=== PATIENT | female | born 1960 | race Two or more races ===

== ENCOUNTER 2021-03-25 10:22 | Emergency (ER) | payer OTHER ==
[~2021-03-25] VITALS: Ht 152.4 cm; Wt 64.4 kg
[2021-03-25] MEDS ORDERED: ATORVASTATIN CA40 MG PO (10:59)
[2021-03-25] MEDS ORDERED: ABILIFY10 MG PO (11:00)
[2021-03-25] MEDS ORDERED: LAMICTAL100 M1 PO (11:01)
[2021-03-25] MEDS ORDERED: PEPCID AC20 MG PO (11:01)
[2021-03-25] MEDS ORDERED: ACID REDUCER20 M1 PO (11:01)
[2021-03-25] MEDS ORDERED: FOSAMAX PLUS D1 EACH (11:02)
[2021-03-25] MEDS ORDERED: ATROVENT HFA12.9 GM IH (11:02)
[2021-03-25] MEDS ORDERED: ZITHROMAX500 MG PO (16:06)
== END 2021-03-25 16:18 | disposition home or self-care (01) ==
LOC: ER 10:22
DX: J35.01 Chronic tonsillitis (principal); R50.9 Fever, unspecified